=== PATIENT | male | born 1970 | race Caucasian/White ===

== ENCOUNTER 2018-12-29 16:26 | Observation (INO) | payer OTHER ==
--- NOTE | 2018-12-29 18:25 | PDCONSULT ---
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 He initially presented with a large stone at the left UPJ. He underwent outpt ureteroscopy and laser lithotripsy at the [facility] six days ago. At that time, it was felt that the stone was broken up into only small fragments that would be small enough to pass. He had a stent left in place that was removed yesterday in the office. Since the stent came out, he describes passing a large amount of fragments. This am he developed excruciating abdominal pain and presented to the ED at [facility]. A CT scan was done that showed large fragments of stone in two areas in the left ureter, as well as in the left kidney. He was treated with a large amount of pain medication and transferred to [facility] for further care. He denies any fever. Says that the urine is dark, but not bloody. No vomiting. Last oral intake was water and crackers early this am. ROS- no headache no chest pain no breathing difficulties + abdominal discomfort with left sided flank pain no pain in extremities Exam male in mod distress secondary to pain breathing comfortably abd - soft tender on left side Imp- Steinstrasse with stone fragments blocking the ureter Plan Will plan to take to the operating room tonight for cystoscopy, left ureteroscopy, laser lithotripsy, basket extraction of stones and stent placement Keep NPO for the procedure.
[2018-12-29] MEDS ORDERED: IOPAMIDOL (ISOVUE-M 300) 15 ML VIAL ONE ×2 (18:26→19:19)
[2018-12-29] MEDS ORDERED: ceFAZolin 2 GM/DEXTROSE 100 ML IV ONE (18:31)
[2018-12-29] MEDS ORDERED: LR 1,000 ML IV ONE (18:35)
[2018-12-29] MEDS ORDERED: ONDANSETRON DISINTEGRATING 4 MG TAB PO PRN (19:07)
[2018-12-29] MEDS ORDERED: ACETAMINOPHEN 325 MG TAB PO PRN (19:07)
[2018-12-29] MEDS ORDERED: ONDANSETRON 4 MG/2 ML VIAL IVP PRN ×3 (19:07→21:20)
--- NOTE | 2018-12-29 19:28 | PDANEPAE ---
ANE History of Present Illness L ureteral stone s/f ureteroscopy, laser and stent ANE Past Medical History - Pulmonary History Hx Sleep Apnea: No ANE Review of Systems Review of Systems: - Exercise capacity Exercise capacity: >=4 METS ANE Patient History - Allergies Allergies/Adverse Reactions: No Known Allergies Allergy (Unverified 12/29/18 18:27) - Home Medications Home medications: home medication list seen and reviewed - NPO status NPO Status: no food or drink >8 hours NPO Since - Liquids (Date): 12/29/18 NPO Since - Liquids (Time): 08:00 NPO Since - Solids (Date): 12/29/18 NPO Since - Solids (Time): 08:00 - Anes Hx Hx Anesthesia Complications (with details): no history of PONV. History of severe shaking post op, better with last surgery (Demerol and primarily TIVA by patient report). Records not available - Smoking Hx Smoking Status: Never smoked Marijuana use: No - Alcohol Use Alcohol Use: Occasionally ANE Labs/Vital Signs - Labs - CBC WBC: from Nov. reviewed and okay - Vital Signs Blood Pressure: 122/83 Heart Rate: 80 Respiratory Rate: 16 O2 Sat (%): 97 Height: 182.88 cm Weight: 105.448 kg ANE Physical Exam - Airway Neck exam: FROM Mallampati Score: Class 2 Mouth exam: normal dental/mouth exam (chipped front teeth and othwise minor damage through out) - Pulmonary Pulmonary: no respiratory distress - Cardiovascular Cardiovascular: regular rate and rhythym - ASA Status ASA Status: I ANE Anesthesia Plan Anesthesia Plan: GA w LMA (primarily TIVA with limited Sevo) Total IV Anesthesia: Yes
[2018-12-29] MEDS ORDERED: MIDAZOLAM 2 MG/2 ML VIAL IVP ONE (19:29)
[2018-12-29] MEDS ORDERED: MIDAZOLAM 2 MG/2 ML VIAL ONE (19:32)
--- NOTE | 2018-12-29 19:32 | PDHPUP ---
History & Physical Update H&P update statement: This history and physical update is based on an assessment of the patient which was completed after admission or registration (within 24 hours), but prior to the surgery/procedure. H&P update: H&P reviewed & patient examined, no change in patient's condition since H&P completed (Heart- RRR, Lungs- clear)
[2018-12-29] MEDS ORDERED: PROPOFOL/EMULSION 500 MG/50 ML BOTTLE IV ONE ×2 (19:42→20:13)
[2018-12-29] MEDS ORDERED: MEPERIDINE 25 MG/ML SYR ONE (19:42)
[2018-12-29] MEDS ORDERED: fentaNYL 100 MCG/2 ML INJ ONE (19:42)
[2018-12-29] MEDS ORDERED: LIDOCAINE 2% JELLY 6 ML TOPICAL SYR ONE (19:43)
[2018-12-29] MEDS ORDERED: DEXAMETHASONE 4 MG/ML VIAL ONE ×2 (19:43)
[2018-12-29] MEDS ORDERED: ONDANSETRON 4 MG/2 ML VIAL ONE (19:43)
[2018-12-29] MEDS ORDERED: LIDOCAINE 2% 100 MG/5 ML SYR ONE (19:43)
[2018-12-29] MEDS ORDERED: RANITIDINE 50 MG/2 ML VIAL ONE (19:43)
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
[2018-12-29] MEDS ORDERED: NALOXONE HCL 0.4 MG/ML INJ IVP PRN ×2 (20:18→21:20)
[2018-12-29] MEDS ORDERED: METOCLOPRAMIDE 10 MG/2 ML VIAL IVP PRN ×2 (20:18→21:20)
[2018-12-29] MEDS ORDERED: fentaNYL 100 MCG/2 ML INJ IVP PRN ×2 (20:18→21:20)
[2018-12-29] MEDS ORDERED: LABETALOL HCL 5 MG/ML 20 ML MDV IVP PRN ×2 (20:18→21:20)
[2018-12-29] MEDS ORDERED: MEPERIDINE 25 MG/0.5 ML AMP IVP PRN ×2 (20:18→21:20)
[2018-12-29] MEDS ORDERED: LR 500 ML IV PRN ×2 (20:18→21:20)
[2018-12-29] MEDS ORDERED: ALBUTEROL 3 ML DEYVIAL IH PRN ×2 (20:18→21:20)
[2018-12-29] MEDS ORDERED: PHENYLEPHRINE HCL 100 MCG/ML SYR IVP PRN ×2 (20:18→21:20)
[2018-12-29] MEDS ORDERED: oxyCODONE IR 5 MG TAB PO PRN ×2 (20:18→21:20)
[2018-12-29] MEDS ORDERED: HYDROmorphONE/DILAUDID 2 MG/ML INJ IVP PRN (20:18)
[2018-12-29] MEDS ORDERED: PROMETHAZINE HCL 25 MG/ML INJ IVP PRN ×2 (20:18→21:20)
--- NOTE | 2018-12-29 20:48 | POSTOPPROG ---
Post Op Note Date of Operation: 12/29/18 Surgeon: Adam Del Rosario Anesthesia: LMA Pre-op Diagnosis: left ureteral stones, left renal stone Post-op Diagnosis: same Indication: remove stones Procedure: cysto, left ureteroscopy, basket ureteral stones, laser renal stone, stent Findings: multiple stone fragments in ureter, larger stones in renal pelvis Inf/Abcess present in the surg proc area at time of surgery?: No EBL: Minimal Complications: none Specimen(s): stones
[2018-12-29] MEDS ORDERED: OPIUM/BELLADONNA ALKALO SUPP PR PRN (20:50)
[2018-12-29] MEDS ORDERED: HYDROmorphONE/DILAUDID 2 MG/ML INJ ONE (21:16)
[2018-12-29] MEDS ORDERED: ALBUTEROL 3 ML DEYVIAL ONE (21:17)
[2018-12-29] MEDS ORDERED: KETOROLAC 30 MG/1 ML SDV ONE (21:20)
[2018-12-29] MEDS ORDERED: KETOROLAC 30 MG/1 ML SDV IVP ONE (21:22)
[2018-12-29] MEDS: HYDROmorphONE/DILAUDID 2 MG/ML INJ IVP PRN ×2 (21:30→21:43)
[2018-12-29] MEDS ORDERED: MEPERIDINE 25 MG/0.5 ML AMP ONE (21:36)
--- NOTE | 2018-12-29 21:37 | POSTANESTH ---
Post Anesthetic Evaluation Cardiovascular Status: Normal, Stable (mild pain related tachycardia) Respiratory Status: Normal, Stable, Tx Decrease in SpO2 (mild post op decrease SaO2, no sign of aspiration issues) Level of Consciousness/Mental Status: Can Participate in Eval, Mildly Sleepy, Arousable Pain Control: Inadeq, Add Tx Required Nausea/Vomiting Control: Adequate, Prn Tx Ordered Complications Possibly Related to Anesthesia: Other, See Comments (post op shaking, better than past surgeries but still present.)
[2018-12-29] MEDS: HYDROmorphONE/DILAUDID 1 MG/ML INJ IVP PRN (22:37)
--- NOTE | 2018-12-29 22:55 | GOP ---
[f rep st] OPERATIVE REPORT DATE OF OPERATION: SURGEON: Adam Del Rosario MD ANESTHESIA: General. PREOPERATIVE DIAGNOSIS: Left ureteral stone, left renal stone. POSTOPERATIVE DIAGNOSIS: Left ureteral stone, left renal stone. PROCEDURE PERFORMED: Cystoscopy, left ureteroscopy, basket extraction of ureteral stones, laser lith otripsy of renal stone, stent placement. FINDINGS: INDICATIONS: This is a man who previously underwent ureteroscopy and laser lithotripsy for a large r enal stone, who presented with steinstrasse with obstruction of the mid ureter. DESCRIPTION OF PROCEDURE: Consent obtained. The patient was brought in the operating room. Once ge neral anesthesia was underway, he was put in lithotomy position, prepped and draped in normal sterile fashion. He received 2 g of IV Ancef prior to the procedure. A part time flexible clerk-out was done before the p rocedure began. A 22-Faroese rigid scope was passed in the bladder under direct vision. Anterior ure thra and prostate were normal. Left ureteral orifice showed evidence of edema and there was a small stone fragment at the ureteral orifice that quickly washed out. A 0.035 Sensor wire was passed into the left ureteral orifice and followed fluoroscopically up to the renal pelvis. A semi-rigid uretero scope was then passed into the distal ureter. Multiple stone fragments were seen, which were grasped with a 3 wire basket and brought out and sent to pathology for evaluation. The scope was continued to pass into the ureter and any fragments that were seen within the ureter were grasped and removed. Eventually, the rigid scope made all the way up to the renal pelvis and there was no evidence of any other stones within the left ureter. A 2nd wire was put into place and a flexible ureteroscope was then passed over the guidewire. There was a large collection of stones in the lower pole of the kidn ey. A 200 micron holmium laser fiber was then utilized to break the stone up into very small fragmen ts. There was no evidence of any large fragments remaining. The ureteroscope was removed. A 6-Fren ch by 26 cm stent was passed over the guidewire. It was seen to coil fluoroscopically in the renal p alyce and cystoscopically in the bladder. The bladder was drained. Patient was transferred to [facility] in good condition. /[id number]/MODL
[2018-12-29] MEDS: PHENAZOPYRIDINE HCL 200 MG TAB PO PRN (23:33)
[2018-12-30] MEDS ORDERED: KETOROLAC 15 MG/1 ML SDV IVP SCH
[2018-12-30] MEDS ORDERED: ALBUTEROL 3 ML DEYVIAL IH PRN (00:37)
[2018-12-30] MEDS: CALCIUM CARBONATE 500 MG CHEWABLE TAB PO PRN ×3 (00:55→08:54)
[2018-12-30] MEDS: HYDROmorphONE/DILAUDID 1 MG/ML INJ IVP PRN ×2 (00:55→05:32)
[2018-12-30] MEDS ORDERED: guaiFENesin 600 MG TAB.ER PO SCH (05:15)
--- NOTE | 2018-12-30 07:24 | SOAPPROG ---
SOAP Progress Note Assessment/Plan: Assessment: doing well post op day 1 only complaint is of hiccups Plan: should be ready for discharge this AM will follow up with me on Friday for removal of stent no need to strain urine 12/30/18 07:21 Subjective: abd soft mildly tender Objective: Vital Signs Temp Pulse Resp BP Pulse Ox 36.5 C 70 18 113/82 H 94 12/30/18 04:00 12/30/18 04:59 12/30/18 04:59 12/30/18 04:00 12/30/18 04:59 Laboratory Results 12/30/18 04:12 12/29/18 12/30/18 12/31/18 05:59 05:59 05:59 Intake Total 1710 Output Total 426 400 Balance 1284 -400 - Pending Discharge Pending Discharge Within 24 Hours: Yes Pending Discharge Date: 12/31/18 Pending Discharge Time: 11:00 ICD10 Worksheet Patient Problems: Problems Problem Status Onset Left ureteral stone Acute Left ureteral stone Acute - ICD10 Problem Qualifiers (1) Left ureteral stone (2) Left ureteral stone
[2018-12-30] MEDS: KETOROLAC 15 MG/1 ML SDV IVP SCH ×2 (08:55→15:04)
--- NOTE | 2018-12-30 09:26 | ASMTCMCOM ---
CM Note CM Note Notes: Met with Pt and Chart reviewed for discharge. Luis Enrique is a 48yr old admitted with Abd pain who 6 days ago had Laser Lithotripsy and a stent was place. CT revealed 7 and 12mm stones present. Pt was taken to surgery 12/29 for a Cysto for left Ureterscopy, basket ureteral stones, laser renal stone, and stent. Pt lives with his Eliana ([phone]) in [facility]. Pt will likely discharge home independently when medically cleared. CM available for needs PLAN: Home Independently. Date Signed: 12/30/2018 09:26 AM Electronically Signed By:Tanja Willoughby
[2018-12-30 11:58] VITALS: BP 101/64
[2018-12-30] MEDS ORDERED: AMOXICILLIN/CLAVULANATE POT 875/125 MG TAB PO SCH (12:15)
[2018-12-30] MEDS ORDERED: PANTOPRAZOLE SODIUM 40 MG TAB PO SCH (12:15)
[2018-12-30] MEDS: PHENAZOPYRIDINE HCL 200 MG TAB PO PRN (12:49)
--- NOTE | 2018-12-30 13:17 | PDDCSUM ---
Discharge Summary Discharge Summary: Pt is a 48 yo male who was admitted with Left ureteral and left renal stone and had stone removal by Urology. He has some post surgical pain which is being treated with pain meds. He is being provided a new script for Dem[place] 5/325mg x 40 pills. Cr was normal. He is on Tamsulosin. He has an aspiration event liliam operatively. He is on RA but has a slight cough. He is being empirically treated with Augmentin for aspiration pneumonia. He has f/u on Friday with Urology for stent removal and will schedule a f/u with his PCP next week for f/ u pneumonia DDX -Left ureteral stone -left renal stone -aspiration pneumonia, aspiration event Cr on d/c is 1.2 NAD AAOX3 RRR DECREASED LUNG SOUNDS ON RIGHT MIDDLE AREA, NORMAL WORK OF BREATHIN S/NT/ND NO LE EDEMA MEDS: SEE MED REC TOTAL TIME SPENT ON D/C IS 35 MINS
== END 2018-12-30 15:27 | disposition home or self-care (01) ==
LOC: F1N 18:05
PROVIDERS: ADMIT Internal Medicine; ATTEND Family Medicine
PROC: 0T778DZ Dilation of Left Ureter with Intraluminal Device, Via Natural or Artificial Opening Endoscopic (ICD-10-PCS; principal; 2018-12-29 19:30)
PROC: BT1FYZZ Fluoroscopy of Left Kidney, Ureter and Bladder using Other Contrast (ICD-10-PCS; principal; 2018-12-29 19:30)
PROC: 0TF48ZZ Fragmentation in Left Kidney Pelvis, Via Natural or Artificial Opening Endoscopic (ICD-10-PCS; principal; 2018-12-29 19:30)
DX: N20.1 Calculus of ureter (principal); N20.0 Calculus of kidney; J69.0 Pneumonitis due to inhalation of food and vomit
CPT/HCPCS: 52356; 76000; C1758; C1769; G0378; G0379; 82365-90; C2625; J0690; J1100; J1170; J1885; J2001; J2175; J2250; J2405; J2704; J2780; J3010; J7613; Q9967